=== PATIENT | male | born 1965 | race Caucasian/White ===

== ENCOUNTER 2023-12-12 17:10 | Emergency (ER) | payer MEDICARE, SELFPAY ==
[2023-12-12 17:14] VITALS: BP 150/81; PULSE 104; TEMP 36.7; O2SAT 97; BMI 31.2
--- NOTE | 2023-12-12 17:34 | CT_ITS ---
The [place] [id number] Patient Name: MARTHA MORRISON MRN: [id number] date: 1965 Sex: M Assigned Patient Location: ER Current Patient Location: Accession/Order Number: [id number] Exam Date: 12/12/2023 18:10 Report Date: 12/12/2023 19:37 At the request of: YUNG NEGRON Procedure: CT cervical spine wo con EXAM: CT cervical spine wo con COMPARISON: 08/25/2022 x-ray C-spine. CLINICAL INDICATION: fall TECHNIQUE: Multiplanar CT images of the cervical spine without contrast. Dose reduction techniques were achieved by using automated exposure control and/or adjustment of mA and/or kV according to patient size and/or use of iterative reconstruction technique. FINDINGS: No CT evidence of acute osseous abnormality. Evaluation for fracture slightly limited by osteopenia and patient motion. No prevertebral soft tissue swelling. Straightening/reversal of the normal cervical lordosis and degenerative grade 1 anterolisthesis of C2 on C3 and C3 on C4 as well as C7 on T1 again seen due to severe facet arthropathy. Severe degenerative disc disease C3-C7 with fusion of C5 C7 vertebral bodies again seen. No critical spinal canal stenosis at any level. Severe right foraminal narrowing C3-C4 and severe left foraminal narrowing C4-C5. CT/CT cervical spine wo con IMPRESSION: No CT evidence of acute osseous abnormality. Evaluation for fracture slightly limited by osteopenia and patient motion. Severe degenerative changes with severe right foraminal narrowing C3-C4 and severe left foraminal narrowing C4-C5. Electronically authenticated by: ALDO BIRCH Date: 12/12/2023 19:37
--- NOTE | 2023-12-12 17:35 | CT_ITS ---
The [address] [address] Patient Name: MARTHA MORRISON MRN: [id number] date: 1965 Sex: M Assigned Patient Location: ER Current Patient Location: ED.MAIN Accession/Order Number: [id number] Exam Date: 12/12/2023 18:55 Report Date: 12/12/2023 20:08 At the request of: YUNG NEGRON Procedure: CT chest wo con EXAM: CT chest wo con HISTORY: fall /trauma COMPARISON: None. TECHNIQUE: CT chest without intravenous contrast. Dose reduction techniques were achieved by using automated exposure control and/or adjustment of mA and/or kV according to patient size and/or use of iterative reconstruction technique. FINDINGS: TUBES AND IMPLANTS: None. CHEST: CHEST WALL AND LOWER NECK: Unremarkable. MEDIASTINUM AND LIAM: Unremarkable. BONES: No acute fracture or dislocation. No suspicious lesions. Multilevel degenerative changes of the spine. AORTA: No aneurysm PULMONARY ARTERIES: Unremarkable. CORONARY ARTERIES: Coronary artery stents noted. HEART: Not enlarged LUNG AND AIRWAYS: No suspicious findings. PLEURA: Unremarkable. UPPER ABDOMEN: No acute findings. CT/CT chest wo con IMPRESSION: No evidence of acute traumatic injury to the chest. Electronically authenticated by: BRADLEY YA Date: 12/12/2023 20:08
[2023-12-12] MEDS: KETOROLAC TROMETHAMINE 60 MG/2 ML VIAL IM (17:41)
[2023-12-12] MEDS: ORPHENADRINE 60 MG/ 2 ML VIAL IM (17:47)
--- NOTE | 2023-12-12 18:06 | ED.GENADUL1 ---
HPI HPI - General Adult General Chief complaint: Extremity Injury, Upper Stated complaint: SHOULDER BLADE TO RIB PAIN Time Seen by Provider: 12/12/23 17:15 Source: patient Mode of arrival: Wheelchair Limitations: no limitations History of Present Illness HPI narrative: The patient is coming to the ER 3 weeks after he fell down while on the steps going down and, the patient mentioned that he fell on the last 5 steps and has been having some right posterior chest wall pain since then, pt had hx of stroke few years ago and he has baseline mild weakness in the right upper and lower extremity . Related Data Home Medications ?Medication ?Instructions ?Recorded ?Confirmed amlodipine 5 mg tablet 5 mg PO DAILY 12/12/23 12/12/23 aspirin 81 mg chewable tablet 81 mg PO DAILY 12/12/23 12/12/23 (Aspirin Childrens) atorvastatin 40 mg tablet 40 mg PO DAILY 12/12/23 12/12/23 clopidogrel 75 mg tablet 75 mg PO DAILY 12/12/23 12/12/23 insulin glargine 100 unit/mL (3 50 unit subcut DAILY 12/12/23 12/12/23 mL) subcutaneous pen (Basaglar KwikPen U-100 Insulin) pantoprazole 20 mg tablet,delayed 20 mg PO DAILY 12/12/23 12/12/23 release semaglutide 1 mg/dose (4 mg/3 mL) 2 mg subcut .weekly 12/12/23 12/12/23 subcutaneous pen injector (Ozempic) Previous Rx's ?Medication ?Instructions ?Recorded hydrocodone 5 mg-acetaminophen 325 1 tab PO Q6H PRN pain 3 days #12 12/12/23 mg tablet tabs tramadol 50 mg tablet 50 mg PO Q8H PRN pain 4 days #14 12/12/23 tabs Allergies Allergy/AdvReac Type Severity Reaction Status Date / Time amoxicillin Allergy Intermediate Verified 12/12/23 17:21 Opioid HPI Opioid Management Most Recent Opioid Data: Last Pain Scale 7 12/12/23 19:14 Last ED Pain Assessment 12/12/23 19:14 Last MAR Pain Assessment 12/12/23 18:33 Review of Systems ROS Status of ROS 10 or more systems reviewed and unremarkable except as noted in history and below Exam Narrative Exam Narrative: Nurses notes and vital signs reviewed and patient is not hypoxic. General: Well-appearing and in no apparent distress. Skin: Warm, dry, no pallor noted. No rash. Head: Normocephalic, atraumatic. Neck: Supple the patient have ecchymosis to the right paraspinal muscle level no intervertebral line level tenderness. Eye: Pupils are equal, round and EOMI. No scleral icterus. Ears, Nose, Mouth, and Throat: TM are clear, no nasal mucosal hypertrophy. Oral mucosa is moist, no posterior oropharynx erythema, uvula is mid-line Cardiovascular: Regular Rate and Rhythm without murmur, gallop or rub. Respiratory: No accessory muscle use or respiratory distress. Lungs are clear to auscultation, no wheezing, rales or rhonchi Chest Wall: There is tenderness upon palpation of the right scapular area as well as the right posterior aspect of the chest wall Back: No midline thoracic or lumbar vertebral tenderness. No CVA tenderness Musculoskeletal: normal ROM, no calf or popliteal tenderness, no lower extremity edema/swelling GI: Abdomen is soft, non-distended. Normal bowel sounds. No masses appreciated. No tenderness to palpation. No rebound, guarding, or rigidity noted. Neurological: A&O x4. No cranial nerve dysfunction observed. No truncal ataxia. Moves all extremities. Sensation intact. Psychiatric: Cooperative and interactive. Normal mood and affect. Constitutional Vital Signs, click to edit/add: Last Vital Signs Temp 98.1 F 12/12/23 17:14 Pulse 88 12/12/23 19:13 Resp 16 12/12/23 19:13 BP 142/84 H 12/12/23 19:13 Pulse Ox 98 12/12/23 19:13 O2 Del Method Room Air 12/12/23 19:13 Course Vital Signs Vital signs: Vital Signs Temperature 98.1 F 12/12/23 17:14 Pulse Rate 104 H 12/12/23 17:14 Respiratory Rate 24 H 12/12/23 17:14 Blood Pressure 150/81 H 12/12/23 17:14 Pulse Oximetry 97 12/12/23 17:14 Oxygen Delivery Method Room Air 12/12/23 17:14 Temperature 98.1 F 12/12/23 17:14 Pulse Rate 88 12/12/23 19:13 Respiratory Rate 16 12/12/23 19:13 Blood Pressure 142/84 H 12/12/23 19:13 Pulse Oximetry 98 12/12/23 19:13 Oxygen Delivery Method Room Air 12/12/23 19:13 Medical Decision Making MDM Narrative Medical decision making narrative: CT of the cervical spine is ordered and pending X-ray of the bilateral ribs as well as x-ray of the scapula ordered The patient initially was to get a CT of the chest wall but we could not obtain it due to the fact that patient cannot lays on his back Patient provided with morphine for pain Awaiting the results of the imaging the patient care will be transferred to Discharge Plan Discharge Stand Alone Forms: Portal Instructions Chief Complaint: Extremity Injury, Upper Clinical Impression: Multiple contusions Patient Disposition: Home, Self-Care Time of Disposition Decision: 20:21 Condition: Good Mode of Transportation: Private Vehicle Prescriptions / Home Meds: New tramadol 50 mg tablet 50 mg PO Q8H PRN (Reason: pain) 4 Days Qty: 14 0RF hydrocodone-acetaminophen 5-325 mg tablet 1 tab PO Q6H PRN (Reason: pain) 3 Days Qty: 12 0RF No Action amlodipine 5 mg tablet 5 mg PO DAILY atorvastatin 40 mg tablet 40 mg PO DAILY clopidogrel 75 mg tablet 75 mg PO DAILY insulin glargine [Basaglar KwikPen U-100 Insulin] 100 unit/mL (3 mL) insulin pen 50 unit SUBCUT DAILY Rx Instructions: AM pantoprazole 20 mg tablet,delayed release (DR/EC) 20 mg PO DAILY Ozempic 1 mg/dose (4 mg/3 mL) pen injector 2 mg SUBCUT .weekly Rx Instructions: WED. aspirin [Aspirin Childrens] 81 mg tablet,chewable 81 mg PO DAILY Print Language: Micronesian Instructions: Contusion in Adults (ED) Referrals: EDUARDO DUVALL [Primary Care Provider] - 1 week Discharge Date/Time: 12/12/23 20:55
[2023-12-12] MEDS: MORPHINE SULFATE 2 MG/ML SYRINGE IV (18:33)
[2023-12-12 19:13] VITALS: BP 142/84; PULSE 88; O2SAT 98
--- NOTE | 2023-12-12 20:22 | ED_ITS ---
HPI HPI - Trauma General Chief Complaint: Extremity Injury, Upper Stated Complaint: SHOULDER BLADE TO RIB PAIN Time Seen by Provider: 12/12/23 17:15 Source: patient Mode of arrival: Wheelchair Limitations: no limitations History of Present Illness HPI narrative: The patient was initially seen by Dr. Parra and signed out to me after discussing the case with her thoroughly. Please see her full history and physical exam. Related Data Home Medications ?Medication ?Instructions ?Recorded ?Confirmed amlodipine 5 mg tablet 5 mg PO DAILY 12/12/23 12/12/23 aspirin 81 mg chewable tablet 81 mg PO DAILY 12/12/23 12/12/23 (Aspirin Childrens) atorvastatin 40 mg tablet 40 mg PO DAILY 12/12/23 12/12/23 clopidogrel 75 mg tablet 75 mg PO DAILY 12/12/23 12/12/23 insulin glargine 100 unit/mL (3 50 unit subcut DAILY 12/12/23 12/12/23 mL) subcutaneous pen (Basaglar KwikPen U-100 Insulin) pantoprazole 20 mg tablet,delayed 20 mg PO DAILY 12/12/23 12/12/23 release semaglutide 1 mg/dose (4 mg/3 mL) 2 mg subcut .weekly 12/12/23 12/12/23 subcutaneous pen injector (Ozempic) Allergies Allergy/AdvReac Type Severity Reaction Status Date / Time amoxicillin Allergy Intermediate Verified 12/12/23 17:21 Opioid HPI Opioid Management Most Recent Pain and Opioid Data: Last Pain Scale 7 12/12/23 19:14 Last ED Pain Assessment 12/12/23 19:14 Last MAR Pain Assessment 12/12/23 18:33 Exam Constitutional Vital Signs, click to edit/add: Last Vital Signs Temp 98.1 F 12/12/23 17:14 Pulse 88 12/12/23 19:13 Resp 16 12/12/23 19:13 BP 142/84 H 12/12/23 19:13 Pulse Ox 98 12/12/23 19:13 O2 Del Method Room Air 12/12/23 19:13 Course Vital Signs Vital signs: Vital Signs Temperature 98.1 F 12/12/23 17:14 Pulse Rate 104 H 12/12/23 17:14 Respiratory Rate 24 H 12/12/23 17:14 Blood Pressure 150/81 H 12/12/23 17:14 Pulse Oximetry 97 12/12/23 17:14 Oxygen Delivery Method Room Air 12/12/23 17:14 Temperature 98.1 F 12/12/23 17:14 Pulse Rate 88 12/12/23 19:13 Respiratory Rate 16 12/12/23 19:13 Blood Pressure 142/84 H 12/12/23 19:13 Pulse Oximetry 98 12/12/23 19:13 Oxygen Delivery Method Room Air 12/12/23 19:13 MDM - Trauma MDM Narrative Medical decision making narrative: CT scans are negative. Findings discussed with the patient and he is able to be discharged home. He is already on prescription narcotic pain medication. Differential Diagnosis Differential diagnosis: Likely other (Contusions, fractures) Imaging Data CT C-spine: Radiologist's impression: ITS Impressions Cervical Spine CT 12/12/23 17:34 IMPRESSION: No CT evidence of acute osseous abnormality. Evaluation for fracture slightly limited by osteopenia and patient motion. Severe degenerative changes with severe right foraminal narrowing C3-C4 and severe left foraminal narrowing C4-C5. Electronically authenticated by: ALDO BIRCH Date: 12/12/2023 19:[address] 12/12/23 17:35 IMPRESSION: No evidence of acute traumatic injury to the chest. Electronically authenticated by: BRADLEY YA Date: 12/12/2023 20:08 Discharge Plan Discharge Stand Alone Forms: Portal Instructions Chief Complaint: Extremity Injury, Upper Clinical Impression: Multiple contusions Patient Disposition: Home, Self-Care Time of Disposition Decision: 20:21 Condition: Good Mode of Transportation: Private Vehicle Prescriptions / Home Meds: No Action amlodipine 5 mg tablet 5 mg PO DAILY atorvastatin 40 mg tablet 40 mg PO DAILY clopidogrel 75 mg tablet 75 mg PO DAILY insulin glargine [Basaglar KwikPen U-100 Insulin] 100 unit/mL (3 mL) insulin pen 50 unit SUBCUT DAILY Rx Instructions: AM pantoprazole 20 mg tablet,delayed release (DR/EC) 20 mg PO DAILY Ozempic 1 mg/dose (4 mg/3 mL) pen injector 2 mg SUBCUT .weekly Rx Instructions: WED. aspirin [Aspirin Childrens] 81 mg tablet,chewable 81 mg PO DAILY Print Language: Slovenian Instructions: Contusion in Adults (ED) Referrals: EDUARDO DUVALL [Primary Care Provider] - 1 week
== END 2023-12-12 20:55 | disposition home or self-care (01) ==
PROVIDERS: Emergency Provider Emergency Medicine; PCP Internal Medicine
DX: T14.8XXA Other injury of unspecified body region, initial encounter (principal); W10.9XXA Fall (on) (from) unspecified stairs and steps, initial encounter; I69.351 Hemiplegia and hemiparesis following cerebral infarction affecting right dominant side; Z79.899 Other long term (current) drug therapy; Z79.82 Long term (current) use of aspirin; Z79.4 Long term (current) use of insulin
CPT/HCPCS: 71250; 72125; 96372; 96374; 99285